=== PATIENT | male | born 1975 | race Caucasian/White ===

== ENCOUNTER 2019-04-18 17:52 | Emergency (ER) | payer OTHER ==
[~2019-04-18] VITALS: Ht 185.4 cm; Wt 86.2 kg
[2019-04-18] MEDS ORDERED: TRAM50TA2 PO (18:05)
[2019-04-18] MEDS ORDERED: HYDROMORPHONE 2 MG/1 ML DISP.SYRIN ONE (18:52)
[2019-04-18] MEDS ORDERED: ONDANSETRON 4 MG/2 ML VIAL ONE (18:53)
[2019-04-18] MEDS ORDERED: HYDROMORPHONE 1 MG/1 ML DISP.SYRIN IM ONE (19:00)
[2019-04-18] MEDS ORDERED: ONDANSETRON 4 MG/2 ML VIAL IM ONE (19:00)
--- NOTE | 2019-04-18 19:00 | NUR ---
Patient discharged to home in stable conditon. Written and verbal after care instructions given. Patient verbalizes understanding of instructions.pt using own wheel chair. pt not driving
== END 2019-04-18 19:02 | disposition home or self-care (01) ==
LOC: ER 17:57
DX: M54.42 Lumbago with sciatica, left side (principal); Z79.899 Other long term (current) drug therapy
CPT/HCPCS: 96372 ×2; 99283; J1170; J2405; A4663

== ENCOUNTER 2019-05-02 11:47 | Emergency (ER) | payer OTHER ==
[~2019-05-02] VITALS: Ht 185.4 cm; Wt 86.2 kg
--- NOTE | 2019-05-02 13:00 | NUR ---
Dr Cruz at the bedside for MSE.
[2019-05-02] MEDS ORDERED: KETOROLAC TROMETHAMINE 60 MG INJ IM ONE ×2 (13:08→13:15)
[2019-05-02] MEDS ORDERED: MORPHINE SULFATE 4 MG/1 ML DISP.SYRIN ONE (13:08)
[2019-05-02] MEDS ORDERED: MORPHINE SULFATE 4 MG/1 ML DISP.SYRIN IM ONE (13:15)
[2019-05-02 13:39] VITALS: BP 141/88
--- NOTE | 2019-05-02 13:39 | NUR ---
Patient discharged to home in stable conditon. Written and verbal after care instructions given. Patient verbalizes understanding of instructions.
== END 2019-05-02 13:40 | disposition home or self-care (01) ==
LOC: ER 11:47
DX: M54.17 Radiculopathy, lumbosacral region (principal); G89.29 Other chronic pain
CPT/HCPCS: 96372 ×2; 99284; J1885; J2270; A4663

== ENCOUNTER 2019-10-20 00:04 | Emergency (ER) | payer OTHER ==
[~2019-10-20] VITALS: Ht 185.4 cm; Wt 86.2 kg
[~2019-10-20 00:04] MED LIST: TRAM50TA2 PO
[2019-10-20] MEDS ORDERED: TAPE100T9 PO (00:54)
[2019-10-20] MEDS ORDERED: BUPR1PAT9 TD (00:54)
--- NOTE | 2019-10-20 01:15 | NUR ---
Dr. Bhatia at bedside for MSE
[2019-10-20] MEDS ORDERED: KETOROLAC TROMETHAMINE 60 MG INJ IM ONE ×2 (01:45→01:51)
[2019-10-20] MEDS ORDERED: MORPHINE SULFATE 4 MG/1 ML DISP.SYRIN IM ONE (01:45)
[2019-10-20] MEDS ORDERED: MORPHINE SULFATE 4 MG/1 ML DISP.SYRIN ONE (01:51)
--- NOTE | 2019-10-20 02:44 | NUR ---
Patient discharged to home in stable condition. Written and verbal after care instructions given. Patient verbalizes understanding of instructions. Stressed follow up or return to ER for worsening s/s. aa/ox4. able to speak in complete sentences no s/s of distress all belongings with pt
--- NOTE | 2019-10-20 02:44 | NUR ---
pt states he will wheel his wheelchair home, 5 minutes away no fall noted
[2019-10-20 03:08] VITALS: BP 145/89
== END 2019-10-20 02:44 | disposition home or self-care (01) ==
LOC: ER 00:06
DX: G89.29 Other chronic pain (principal); M54.5 Low back pain; Z99.3 Dependence on wheelchair; R20.0 Anesthesia of skin; Z59.0 Homelessness; T14.8XXS Other injury of unspecified body region, sequela; V49.60XS Unspecified car occupant injured in collision with unspecified motor vehicles in traffic accident, sequela
CPT/HCPCS: 96372 ×2; 99284; J1885; J2270; A4663

== ENCOUNTER 2019-10-21 23:15 | Emergency (ER) | payer OTHER ==
[~2019-10-21] VITALS: Ht 185.4 cm; Wt 86.2 kg
[~2019-10-21 23:15] MED LIST changes: +BUPR1PAT9 TD; +TAPE100T9 PO; -TRAM50TA2 PO
--- NOTE | 2019-10-21 23:28 | NUR ---
MD Banda at [facility] for MSE
[2019-10-21] MEDS ORDERED: MORPHINE SULFATE 4 MG/1 ML DISP.SYRIN ONE (23:45)
[2019-10-21] MEDS ORDERED: KETOROLAC TROMETHAMINE 60 MG INJ IM ONE ×2 (23:45)
[2019-10-21] MEDS ORDERED: MORPHINE SULFATE 10 MG/1 ML DISP.SYRIN IM ONE (23:45)
[2019-10-21] MEDS ORDERED: MORPHINE SULFATE 2 MG/1 ML DISP.SYRIN ONE (23:46)
--- NOTE | 2019-10-22 00:18 | NUR ---
no falls noted
--- NOTE | 2019-10-22 00:18 | NUR ---
Patient discharged to home in stable condition. Written and verbal after care instructions given. Patient verbalizes understanding of instructions. Stressed follow up or return to ER for worsening s/s. aa/ox4. able to speak in complete sentences respirations even and unlabored no s/s of distress all belongings with pt pt will wheel wheelchair to sister's house, 5 minutes away
[2019-10-22 00:31] VITALS: BP 149/96
== END 2019-10-22 00:18 | disposition home or self-care (01) ==
LOC: ER 23:21
DX: M54.2 Cervicalgia (principal); G89.29 Other chronic pain; M54.5 Low back pain; R03.0 Elevated blood-pressure reading, without diagnosis of hypertension; T14.90XS Injury, unspecified, sequela; V49.9XXS Car occupant (driver) (passenger) injured in unspecified traffic accident, sequela; Z99.3 Dependence on wheelchair
CPT/HCPCS: 96372 ×2; 99284; J1885; J2270; A4663

== ENCOUNTER 2020-01-28 21:32 | Emergency (ER) | payer OTHER ==
[~2020-01-28] VITALS: Ht 185.4 cm; Wt 86.2 kg
--- NOTE | 2020-01-28 21:38 | NUR ---
Patient in room at this time
--- NOTE | 2020-01-28 21:41 | NUR ---
at bedside for assesment
[2020-01-28] MEDS ORDERED: KETOROLAC TROMETHAMINE 30 MG INJ ONE (21:53)
[2020-01-28] MEDS ORDERED: MORPHINE SULFATE 2 MG/1 ML DISP.SYRIN ONE (21:54)
[2020-01-28] MEDS ORDERED: MORPHINE SULFATE 4 MG/1 ML DISP.SYRIN ONE (21:54)
[2020-01-28] MEDS ORDERED: KETOROLAC TROMETHAMINE 30 MG INJ IM ONE (22:00)
[2020-01-28] MEDS ORDERED: MORPHINE SULFATE 4 MG/1 ML DISP.SYRIN IM ONE (22:00)
--- NOTE | 2020-01-28 22:02 | NUR ---
Patient discharged to home in stable condition. Took all belongings, no signs of acute distress noted Written and verbal after care instructions given. Patient verbalizes understanding of instructions. Stressed follow up or return to ER for worsening s/s.
[2020-01-28 22:07] VITALS: BP 169/87
== END 2020-01-28 22:06 | disposition home or self-care (01) ==
LOC: ER 21:34
DX: G89.21 Chronic pain due to trauma (principal); S22.009S Unspecified fracture of unspecified thoracic vertebra, sequela; X58.XXXS Exposure to other specified factors, sequela; Z99.3 Dependence on wheelchair; Z79.899 Other long term (current) drug therapy
CPT/HCPCS: 96372 ×2; 99284; J1885; J2270 ×2; A4663

== ENCOUNTER 2020-03-04 15:10 | Emergency (ER) | payer OTHER ==
[~2020-03-04] VITALS: Ht 185.4 cm; Wt 81.6 kg
[2020-03-04] MEDS: ONDANSETRON 4 MG/2 ML VIAL IV ONE (15:30)
[2020-03-04] MEDS: KETOROLAC TROMETHAMINE 15 MG INJ IVP ONE (15:30)
[2020-03-04] MEDS: MORPHINE SULFATE 2 MG/1 ML DISP.SYRIN IV ONE (15:30)
[2020-03-04] MEDS: IV NORMAL SALINE 1000 ML BAG IV ONE (15:32)
[2020-03-04] MEDS ORDERED: KETOROLAC TROMETHAMINE 15 MG INJ ONE (16:06)
[2020-03-04] MEDS ORDERED: MORPHINE SULFATE 4 MG/1 ML DISP.SYRIN ONE ×2 (16:07→17:33)
[2020-03-04 16:10] LABS: BASOPHILS % (AUTO) 0.2 % (0.0-2.0); EOSINOPHILS % (AUTO) 0.1 % (0.0-7.0); HEMATOCRIT 44.7 % (36.7-47.1); HEMOGLOBIN 14.9 g/dL (12.5-16.3); LYMPHOCYTES # (AUTO) 1.1 K/uL (20.0-40.0); MEAN CORPUSCULAR HEMOGLOBIN 30.2 uug (23.8-33.4); MEAN CORPUSCULAR HGB CONC 33 g/dL (32.5-36.3); MEAN CORPUSCULAR VOLUME 90.6 fL (73.0-96.2); MONOCYTES # (AUTO) 0.4 K/uL (2.0-10.0); MONOCYTES % (AUTO) 2.8 % (0.0-11.0); NEUTROPHILS # (AUTO) 12.3 K/uL (1.8-8.9); NEUTROPHILS % (AUTO) 88.9 % (38.5-71.5); PLATELET COUNT (AUTO) 337 K/uL (152-348); RED BLOOD CELL COUNT(AUTO) 4.94 MIL/uL (4.06-5.63); WHITE BLOOD COUNT (AUTO) 13.9 K/uL (3.6-10.2)
[2020-03-04] MEDS ORDERED: ONDANSETRON 4 MG/2 ML VIAL ONE (16:15)
[2020-03-04 16:16] LABS: CREATININE 0.7 mg/dL (0.6-1.3); POTASSIUM 4.3 mmol/L (3.5-5.1)
[2020-03-04 16:23] LABS: BILIRUBIN,DIRECT 0.1 mg/dL (0.0-0.2); BILIRUBIN,TOTAL 0.4 mg/dL (0.2-1.0); TOTAL PROTEIN, SERUM 7.3 g/dL (6.4-8.2)
--- NOTE | 2020-03-04 16:37 | NUR ---
PT IS IN ROOM #1B. DR MCFARLANE EVALUATED THE PT.
[2020-03-04] MEDS: MORPHINE SULFATE 4 MG/1 ML DISP.SYRIN IV ONE (17:26)
--- NOTE | 2020-03-04 18:17 | NUR ---
PT WAS D/C'd TO HOME. D/C INSTRUCTIONS GIVEN TO THE PT BY DR MCFARLANE. PT DENIES PAIN. NO N/V. NO SOB.
[2020-03-04 18:19] VITALS: BP 133/69
== END 2020-03-04 18:21 | disposition home or self-care (01) ==
LOC: ER 15:10
DX: R11.10 Vomiting, unspecified (principal); Z99.3 Dependence on wheelchair; G89.29 Other chronic pain; M54.9 Dorsalgia, unspecified; D72.829 Elevated white blood cell count, unspecified
CPT/HCPCS: 80048; 80076; 83690; 85025; 96361; 96374; 96375; 96376; 99284; J1885; J2270 ×2; J2405; 36415; A4663; J7030

== ENCOUNTER 2021-01-01 18:55 | Emergency (ER) | payer OTHER ==
[~2021-01-01] VITALS: Ht 185.4 cm; Wt 86.2 kg
--- NOTE | 2021-01-01 19:15 | NUR ---
Pt brought back to ED2A by desulphuring operator Adrian due to severe back pain. Pt has good color, temp and appearance, slightly hypertensive, all other VS WNL, PE WNL except for complaints of severe pain while raising legs of of gurney. Strong and reg pulses x4ext, strong and equal wash and greaser strength bilat. lungs clear, oxygenating and perfusing well. Complaining of 9/10 pain rt posterior flank radiating to midline back. pt AAOx4 with no s/sx of distress present
[2021-01-01] MEDS: KETOROLAC TROMETHAMINE 60 MG INJ IM ONE (19:55)
[2021-01-01] MEDS: HYDROMORPHONE 1 MG/1 ML DISP.SYRIN IM ONE (19:55)
[2021-01-01] MEDS ORDERED: KETOROLAC TROMETHAMINE 60 MG INJ IM ONE (20:06)
[2021-01-01] MEDS ORDERED: HYDROMORPHONE 2 MG/1 ML DISP.SYRIN ONE (20:07)
[2021-01-01] MEDS ORDERED: KETO10TA2 PO (20:41)
--- NOTE | 2021-01-01 21:10 | NUR ---
EDMD Dr. Wilson at pt bedside for eval. Verbal pain med order of 4mg dilaudid IM and 60mg Toridiol IM given by EDMD. Order confirmed and administered. Pt states that his pain specialist is giving him Soboxone and will most likely counteract with the Dilaudid, hence pain relief wont be as affective. Will reassess pain relief in 20 min
--- NOTE | 2021-01-01 21:47 | NUR ---
Pt states that his pain is still at 8/10 but that he felt tremendous relief in his neck and upper back.
--- NOTE | 2021-01-01 21:48 | NUR ---
Pt given DC instructions and pt confirmed understanding of aftercare. Pt told to follow up with PMD and to get a second and third oppinion regarding pain management and use of soboxone to treat pain. Pt has good color, temp and appearance, VSS, still Hypertensive, PE wnl. Denies any nausea and reaction. Pt wheeled out on own WC.
[2021-01-01 22:11] VITALS: BP 165/90
== END 2021-01-01 21:48 | disposition home or self-care (01) ==
LOC: ER 19:07
DX: M54.42 Lumbago with sciatica, left side (principal); G89.29 Other chronic pain; Z79.899 Other long term (current) drug therapy; Z99.3 Dependence on wheelchair
CPT/HCPCS: 96372 ×2; 99284; J1170; J1885; A4663

== ENCOUNTER 2021-01-02 12:51 | Emergency (ER) | payer OTHER ==
[~2021-01-02] VITALS: Ht 185.4 cm; Wt 86.2 kg
[~2021-01-02 12:51] MED LIST changes: +KETO10TA2 PO
--- NOTE | 2021-01-02 13:20 | NUR ---
Note sher in EDM - 01/02/21 at 1346 by ALAN Per pt may be admitted to [facility], spoke with nursing public relations supervisor who said to call 3rd floor for [facility] bed assignment. Spoke with charge nurse on 3rd floor who stated she will call back.
--- NOTE | 2021-01-02 13:30 | NUR ---
at bedside for assessment
--- NOTE | 2021-01-02 13:40 | NUR ---
Pt has a dog with him in the rney, the dog is barking and DARI stated the dog attempted to bite her when she was assesing the patient. Security was notified to come speak with the patient and proceed per hospital policy.
[2021-01-02] MEDS ORDERED: HYDROMORPHONE 1 MG/1 ML DISP.SYRIN IV ONE ×3 (13:45→15:30)
[2021-01-02] MEDS ORDERED: KETOROLAC TROMETHAMINE 15 MG INJ IVP ONE (13:45)
[2021-01-02] MEDS ORDERED: HYDROMORPHONE 1 MG/1 ML DISP.SYRIN ONE ×3 (14:03→15:40)
[2021-01-02] MEDS ORDERED: KETOROLAC TROMETHAMINE 15 MG INJ ONE (14:03)
--- NOTE | 2021-01-02 15:40 | NUR ---
IV removed. Catheter intact and site benign. Pressure and 4x4 gauze applied to site. No bleeding noted.
--- NOTE | 2021-01-02 15:42 | NUR ---
Patient discharged to home in stable condition. Written and verbal after care instructions given. Patient verbalizes understanding of instructions. Stressed follow up or return to ER for worsening s/s.
[2021-01-02 15:43] VITALS: BP 131/79
== END 2021-01-02 15:44 | disposition home or self-care (01) ==
LOC: ER 12:51
DX: G89.29 Other chronic pain (principal); M54.9 Dorsalgia, unspecified; R29.6 Repeated falls; Z99.3 Dependence on wheelchair; Z98.1 Arthrodesis status
CPT/HCPCS: 72125; 72128; 72131; 96374; 96375; 96376; 99285; J1170 ×3; J1885; A4663

== ENCOUNTER 2021-01-03 12:42 | Emergency (ER) | payer OTHER ==
[~2021-01-03] VITALS: Ht 185.4 cm; Wt 86.2 kg
== END 2021-01-03 14:06 | disposition left against medical advice (07) ==
LOC: ER 12:50
DX: Z53.21 Procedure and treatment not carried out due to patient leaving prior to being seen by health care provider (principal)

== ENCOUNTER 2021-03-23 18:18 | Emergency (ER) | payer OTHER ==
[~2021-03-23] VITALS: Ht 185.4 cm; Wt 86.2 kg
--- NOTE | 2021-03-23 19:25 | NUR ---
NO BEDS AVAILABLE IN THE ER. PLACED PATIENT BACK TO WAITING ROOM TO WAIT FOR BED OPENING.
--- NOTE | 2021-03-23 20:38 | NUR ---
PATIENT PLACED IN HALLWAY DUEW TO NO BEDS AVAILABLE.
[2021-03-23] MEDS ORDERED: IV NORMAL SALINE 1000 ML BAG IV ONE (21:00)
[2021-03-23] MEDS ORDERED: diphenhydrAMINE 50 MG/1 ML VIAL IV ONE ×2 (21:00→23:00)
[2021-03-23] MEDS ORDERED: METOCLOPRAMIDE HCL 10 MG/2 ML VIAL IV ONE (21:00)
--- NOTE | 2021-03-23 21:05 | NUR ---
PATIENT OUT OF UNIT FOR CT SCAN
[2021-03-23] MEDS ORDERED: diphenhydrAMINE 50 MG/1 ML VIAL ONE ×2 (21:21→23:00)
[2021-03-23] MEDS ORDERED: METOCLOPRAMIDE HCL 10 MG/2 ML VIAL ONE (21:21)
[2021-03-23 21:37] LABS: MEAN CORPUSCULAR HEMOGLOBIN 31.7 uug (23.8-33.4); MEAN CORPUSCULAR VOLUME 92.8 fL (73.0-96.2); PLATELET COUNT (AUTO) 401 K/uL (152-348)
[2021-03-23 21:39] LABS: CREATININE 0.8 mg/dL (0.6-1.3); POTASSIUM 4.2 mmol/L (3.5-5.1)
[2021-03-23 21:43] LABS: BILIRUBIN,DIRECT 0.1 mg/dL (0.0-0.2); BILIRUBIN,TOTAL 0.4 mg/dL (0.2-1.0); TOTAL PROTEIN, SERUM 7.8 g/dL (6.4-8.2)
--- NOTE | 2021-03-23 22:58 | NUR ---
PATIENT STATES HE FELT ANXIOUS. REQUESTING TO TO LEAVE.IV removed. Catheter intact and site benign. Pressure and 4x4 gauze applied to site. No bleeding noted.
[2021-03-23] MEDS ORDERED: KETOROLAC TROMETHAMINE 30 MG INJ IVP ONE (23:00)
--- NOTE | 2021-03-23 23:00 | NUR ---
Patient eloped from facility. ER physician notified.
== END 2021-03-23 23:00 | disposition left against medical advice (07) ==
LOC: ER 18:20
DX: G89.29 Other chronic pain (principal); M54.9 Dorsalgia, unspecified; R51.9 Headache, unspecified; G25.71 Drug induced akathisia; T45.0X5A Adverse effect of antiallergic and antiemetic drugs, initial encounter; Y92.238 Other place in hospital as the place of occurrence of the external cause; Z99.3 Dependence on wheelchair; Z98.1 Arthrodesis status; M48.02 Spinal stenosis, cervical region; Z20.822 Contact with and (suspected) exposure to COVID-19
CPT/HCPCS: 36415; 70450; 72125; 80048; 80076; 85025; 87426; 96361; 96374; 96375; 99285; J1200 ×2; J2765; A4663; J7030